=== PATIENT | female | born 1945 | race Caucasian/White ===

== ENCOUNTER 2021-10-08 23:32 | Emergency (ER) | payer MEDICARE, MEDICAID ==
[~2021-10-08] VITALS: Ht 167.6 cm; Wt 75.0 kg
[2021-10-09 01:42] VITALS: BP 128/82
== END 2021-10-09 01:44 | disposition home or self-care (01) ==
LOC: EDBD 23:33 → ER 23:33
DX: F22 Delusional disorders (principal); B80 Enterobiasis; I10 Essential (primary) hypertension; Z79.899 Other long term (current) drug therapy
CPT/HCPCS: 99281